=== PATIENT | male | born 1980 | race Caucasian/White ===

== ENCOUNTER 2018-07-24 16:27 | Emergency (ER) | payer BC, OTHER ==
[2018-07-24] MEDS ORDERED: Sodium Chloride 0.9% 1,000 ML IV ONE (17:03)
[2018-07-24] MEDS ORDERED: Ketorolac 30 MG/ML SDV IVPUSH ONE (17:03)
[2018-07-24] MEDS ORDERED: Sodium Chloride 0.9% 10 ML Syringe FLUSH PRN (17:03)
[2018-07-24] MEDS ORDERED: Sodium Chloride 0.9% 2.5 ML Syringe FLUSH PRN (17:03)
--- NOTE | 2018-07-24 17:08 | EDM.PDOC ---
ED HPI GENERAL MEDICAL PROBLEM - General Chief Complaint: Abdominal Pain Stated Complaint: HEMORRHOIDS Time Seen by Provider: 07/24/18 16:31 - History of Present Illness INITIAL COMMENTS - FREE TEXT/NARRATIVE: HISTORY AND PHYSICAL: History of present illness: The patient is a healthy 37 rolled male who presents with right-sided abdominal pain that started about 2 days ago and appears to be getting worse. He is concerned because at the end of last year he had an episode where he was doing some lifting and did not do good body mechanics and he felt a pulling like sensation in his right side of his abdomen. It was discomforting and tender for some time but slowly healed and he has had episodic discomfort in this region but never severe. He did not seek treatment at the initial injury and has not sought evaluation since that time. He says that for the last 2 days he has had this right abdominal pain which originates in his right lower quadrant and radiates up but does not go up to his right upper quadrant. He has had some anorexia but no fevers no nausea no vomiting and no recent heavy lifting or strenuous activity. He has no urinary complaints no flank pain and no testicular pain or swelling. The patient says that his diet is very variable and he does drink caffeine. Sometimes he will eat healthy and other times he eats on ago. He describes the pain as deep and sharp and is worse with certain movements. He has not taken anything [id number] for this pain. She'll [place] triage she was worried about a hernia but in my dialogue with him that concern has never arisen Review of systems: As per history of present illness and below otherwise all systems reviewed and negative. Past medical history: As per history of present illness and as reviewed below otherwise noncontributory. Surgical history: As per history of present illness and as reviewed below otherwise noncontributory. Social history: No reported history of drug or alcohol abuse. Family history: As per history of present illness and as reviewed below otherwise noncontributory. Physical exam: General: Well-developed well-nourished man who is nontoxic and vital signs are noted by me. In seems a bit anxious on my evaluation and nervous. HEENT: Atraumatic, normocephalic, negative for conjunctival pallor or scleral icterus, mucous membranes moist, throat clear, neck supple, nontender, trachea midline. Lungs: Clear to auscultation, breath sounds equal bilaterally, chest nontender. Heart: S1S2, regular rate and rhythm no overt murmurs Abdomen: Soft, nondistended, sounds are slightly hypoactive. There is no overt ventral wall hernia appreciated or any defects in the abdominal wall on the right side that I can appreciate. There is discrete tenderness in the right lower quadrant with some voluntary guarding but no rebound or involuntary guarding.. Negative for masses or hepatosplenomegaly. Negative for costovertebral tenderness. Pelvis: Stable nontender. Genitourinary: normal male without any overt masses or lesions appreciated in the inguinal area on supine exam Rectal: Deferred. Extremities: Atraumatic, negative for cords or calf pain. Neurovascular unremarkable. Neuro: Awake, alert, oriented. Cranial nerves II through XII unremarkable. Cerebellum unremarkable. Motor and sensory unremarkable throughout. Exam nonfocal. Diagnostics: CBC CMP UA CT scan of the abdomen and pelvis Therapeutics: IV fluids Toradol Discussed the CAT scan and lab tests results with the patient. He is aware that he has colonic fecal retention in the ascending and transverse colon which correlates to the area of his discomfort. I will advise him on [id number] preps he continues including MiraLAX. He is also aware of his prostatomegaly and the need for follow-up with our urologist. When I asked him about initiating a stream sensation of urinary retention for fullness in the suprapubic area he says he will have this intermittently but not on a constant basis. He has not produced a urine sample here and insists that he doesn't feel like he has to urinate and he had a large urine output prior to coming here. He tells me that he will follow-up and address this with Dr. Jasso. Impression: Right abdominal pain, colonic fecal retention and prostatomegaly Definitive disposition and diagnosis as appropriate pending reevaluation and review of above. Right abdominal pain Pain Score (Numeric/FACES): 5 - Related Data Allergies Allergy/AdvReac Type Severity Reaction Status Date / Time No Known Allergies Allergy Verified 07/24/18 16:49 Home Meds: Home Meds . 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 ED EXAM, GENERAL - Physical Exam Exam: See Below (See dictation) Course - Vital Signs Last Recorded V/S: Last Vital Signs Temp 36.6 C 07/24/18 16:49 Pulse 96 07/24/18 16:49 Resp 16 07/24/18 16:49 BP 131/95 H 07/24/18 16:49 Pulse Ox 99 07/24/18 16:49 - Orders/Labs/Meds Orders: Active Orders 24 hr Category Date Time Status Abdomen Pelvis w Cont [CT] Stat Exams 07/24/18 17:03 Taken UA W/MICROSCOPIC [URIN] Stat Lab 07/24/18 17:02 Ordered Sodium Chloride 0.9% [Saline Flush] Med 07/24/18 17:03 Active 10 ml FLUSH ASDIRECTED PRN Sodium Chloride 0.9% [Saline Flush] Med 07/24/18 17:03 Active 2.5 ml FLUSH ASDIRECTED PRN Saline Lock Insert [OM.PC] Stat Oth 07/24/18 17:01 Ordered Medication Orders Sodium Chloride (Saline Flush) 10 ml FLUSH ASDIRECTED PRN PRN Reason: Keep Vein Open Sodium Chloride (Saline Flush) 2.5 ml FLUSH ASDIRECTED PRN PRN Reason: Keep Vein Open Labs: Laboratory Tests 07/24/18 07/24/18 Range/Units 17:10 17:10 WBC 8.97 (4.0-11.0) K/uL RBC 4.68 (4.50-5.90) M/uL Hgb 14.9 (13.0-17.0) g/dL Hct 42.1 (38.0-50.0) % MCV 90.0 (80.0-98.0) fL MCH 31.8 (27.0-32.0) pg MCHC 35.4 (31.0-37.0) g/dL RDW Std Deviation 41.9 (28.0-62.0) fl RDW Coeff of Makenna 13 (11.0-15.0) % Plt Count 322 (150-400) K/uL MPV 9.40 (7.40-12.00) fL Neut % (Auto) 58.8 (48.0-80.0) % Lymph % (Auto) 32.1 (16.0-40.0) % Gulf % (Auto) 7.1 (0.0-15.0) % Eos % (Auto) 1.4 (0.0-7.0) % Baso % (Auto) 0.6 (0.0-1.5) % Neut # (Auto) 5.3 (1.4-5.7) K/uL Lymph # (Auto) 2.9 H (0.6-2.4) K/uL Gulf # (Auto) 0.6 (0.0-0.8) K/uL Eos # (Auto) 0.1 (0.0-0.7) K/uL Baso # (Auto) 0.1 (0.0-0.1) K/uL Nucleated RBC % 0.0 /100WBC Nucleated RBCs # 0 K/uL Sodium 141 (136-148) mmol/L Potassium 3.3 L (3.5-5.1) mmol/L Chloride 105 (98-107) mmol/L Carbon Dioxide 26.9 (21.0-32.0) mmol/L BUN 15 (7.0-18.0) mg/dL Creatinine 1.0 (0.8-1.3) mg/dL Est Cr Clr Drug Dosing 107.11 mL/min Estimated GFR (MDRD) > 60.0 ml/min Glucose 114 H (74-106) mg/dL Calcium 9.4 (8.5-10.1) mg/dL Total Bilirubin 0.7 (0.2-1.0) mg/dL AST 23 (15-37) IU/L ALT 52 (14-63) IU/L Alkaline Phosphatase 39 L (46-116) U/L Total Protein 7.9 (6.4-8.2) g/dL Albumin 4.3 (3.4-5.0) g/dL Globulin 3.6 H (2.0-3.5) g/dL Albumin/Globulin Ratio 1.2 L (1.3-2.8) Meds: Medications Generic Name Dose Route Start Last Admin Trade Name Freq PRN Reason Stop Dose Admin Sodium Chloride 10 ml 07/24/18 17:03 Saline Flush FLUSH ASDIRECTED PRN Keep Vein Open Sodium Chloride 2.5 ml 07/24/18 17:03 Saline Flush FLUSH ASDIRECTED PRN Keep Vein Open Discontinued Medications Generic Name Dose Route Start Last Admin Trade Name Freq PRN Reason Stop Dose Admin Sodium Chloride 1,000 mls @ 999 mls/hr 07/24/18 17:03 07/24/18 17:20 Normal Saline IV 07/24/18 18:03 999 mls/hr STAT ONE Administration Iopamidol 100 ml 07/24/18 18:13 07/24/18 18:15 Isovue Multipack-370 (76%) IVPUSH 07/24/18 18:14 100 ml ONETIME STA Administration Ketorolac Tromethamine 30 mg 07/24/18 17:03 07/24/18 17:20 Toradol IVPUSH 07/24/18 17:04 30 mg ONETIME ONE Administration Departure - Departure Time of Disposition: 18:51 Disposition: Home, Self-Care 01 Condition: Good Clinical Impression: Prostate enlargement Abdominal pain Qualifiers: Abdominal location: right lower quadrant Qualified Code(s): R10.31 - Right lower quadrant pain - Discharge Information Referrals: PCP,None [Primary Care Provider] - Forms: ED Department Discharge Additional Instructions: The following information is given to patients seen in the emergency department who are being discharged to home. This information is to outline your options for follow-up care. We provide all patients seen in our emergency department with a follow-up referral. The need for follow-up, as well as the timing and circumstances, are variable depending upon the specifics of your emergency department visit. If you don't have a primary care physician on staff, we will provide you with a referral. We always advise you to contact your personal physician following an emergency department visit to inform them of the circumstance of the visit and for follow-up with them and/or the need for any referrals to a consulting specialist. The emergency department will also refer you to a specialist when appropriate. This referral assures that you have the opportunity for followup care with a specialist. All of these measure are taken in an effort to provide you with optimal care, which includes your followup. Under all circumstances we always encourage you to contact your private physician who remains a resource for coordinating your care. When calling for followup care, please make the office aware that this follow-up is from your recent emergency room visit. If for any reason you are refused follow-up, please contact the [facility] emergency department at and ask to speak to the emergency department charge nurse. [facility] Specialty Care-Urology [address] [place] [id number] [facility] Primary care- Internal Medicine and Family [address] [address] Please call and follow-up with her urologist for further testing on your prostate as we discussed. Please use [id number] MiraLAX and take one heaping tablespoon twice a day for the next 2 days and then once a day for the next 3 days after that. Please try to reduce caffeine in your diet and push more hydration and high fiber foods. Use any [id number] Tylenol or ibuprofen for pain and return to ER as needed and as discussed - My Orders Last 24 Hours: My Active Orders 07/24/18 17:01 Saline Lock Insert [OM.PC] Stat 07/24/18 17:02 UA W/MICROSCOPIC [URIN] Stat 07/24/18 17:03 Abdomen Pelvis w Cont [CT] Stat Sodium Chloride 0.9% [Saline Flush] 10 ml FLUSH ASDIRECTED PRN Sodium Chloride 0.9% [Saline Flush] 2.5 ml FLUSH ASDIRECTED PRN - Assessment/Plan Last 24 Hours: My Active Orders 07/24/18 17:01 Saline Lock Insert [OM.PC] Stat 07/24/18 17:02 UA W/MICROSCOPIC [URIN] Stat 07/24/18 17:03 Abdomen Pelvis w Cont [CT] Stat Sodium Chloride 0.9% [Saline Flush] 10 ml FLUSH ASDIRECTED PRN Sodium Chloride 0.9% [Saline Flush] 2.5 ml FLUSH ASDIRECTED PRN
[2018-07-24 17:47] LABS: CHLORIDE,CL 105 mmol/L (98-107); SODIUM,NA 141 mmol/L (136-148)
[2018-07-24] MEDS ORDERED: Iopamidol 755 MG/ML 500 ML Multipack Bottle IVPUSH STA (18:13)
--- NOTE | 2018-07-25 19:30 | CT ---
EXAM DATE: 07/24/18 PATIENT'S AGE: 37 Patient: QAMAR SIN Facility: [place], [place] Site . Site : [id number] Study: CT Abdomen/Pelvis 100 mL [id number]/30/2018 6:28:45 PM Ordering Physician: Jayden Yanez Final Report: INDICATION: Right-sided pain TECHNIQUE: CT abdomen and pelvis acquired with IV contrast. 100 cc Isovue 370 COMPARISON: None FINDINGS: Lower chest: Unremarkable. Liver: Unremarkable. Spleen: Unremarkable. Pancreas: Unremarkable. Gallbladder and bile ducts: Unremarkable. Kidneys: Unremarkable. Adrenal glands: Unremarkable. GI tract: Moderate fecal retention involving the ascending and transverse colon. Appendix is normal. Vascular structures: Unremarkable. Lymph nodes: Unremarkable. Miscellaneous: Unremarkable. No free air or significant free fluid. Pelvic Organs: Prostatomegaly with diffuse bladder wall thickening. Bones: Unremarkable for age. IMPRESSION: No urinary tract stones or hydronephrosis. Normal-appearing gallbladder and appendix. Colonic fecal retention in the ascending and transverse colon. Prostatomegaly with diffuse bladder wall thickening. Dictated by MD @ 07/24/2018 6:42:06 PM Dictated by: Keegan Frost MD @ 07/24/2018 18:42:17 (Electronic Signature) Report Signed by Proxy. KIESHA
== END 2018-07-24 19:10 | disposition home or self-care (01) ==
LOC: MW.ED 16:27
DX: N40.0 Benign prostatic hyperplasia without lower urinary tract symptoms (principal); K59.00 Constipation, unspecified; F17.210 Nicotine dependence, cigarettes, uncomplicated
CPT/HCPCS: 36415; 74177; 80053; 85025; 96361; 96374; 99284; J1885; J7040; Q9967